=== PATIENT | male | born 1950 | race Caucasian/White ===

== ENCOUNTER 2022-06-27 13:19 | Outpatient (CLI) | payer MEDICARE, OTHER, SELFPAY ==
[2022-06-27 17:55] LABS: Chloride* 104 mmol/L (96-114)
[2022-06-27 17:56] LABS: Potassium* 4.8 mmol/L (3.6-5.1); Sodium* 139 mmol/L (135-149)
[2022-06-27 17:58] LABS: Creatinine* 0.9 mg/dL (0.5-1.5); Estimated Glomerular Filt Rate 90 ml/min
[2022-06-27 17:59] LABS: Blood Urea Nitrogen* 20 mg/dL (7-30); Calcium* 9.3 mg/dL (8.4-10.6); Carbon Dioxide* 26 mmol/L (20-32); Glucose* 82 mg/dL (60-115)
== END 2022-06-27 13:20 | disposition home or self-care (01) ==
LOC: LONREF 13:20
PROVIDERS: PCP Family Medicine; Visit Provider Family Medicine
DX: Z01.818 Encounter for other preprocedural examination (principal)
CPT/HCPCS: 80048

== ENCOUNTER 2022-12-18 08:07 | Outpatient (CLI) | payer MEDICARE, OTHER, SELFPAY ==
[2022-12-18 15:13] LABS: Chloride* 108 mmol/L (96-114); Potassium* 4.6 mmol/L (3.6-5.1); Sodium* 138 mmol/L (135-149)
[2022-12-18 15:16] LABS: Blood Urea Nitrogen* 19 mg/dL (7-30); Carbon Dioxide* 24 mmol/L (20-32); Cholesterol* 135 mg/dL (90-199); Creatinine* 0.9 mg/dL (0.5-1.5); Estimated Glomerular Filt Rate 90 ml/min; Glucose* 102 mg/dL (60-115)
[2022-12-18 15:17] LABS: Calcium* 8.8 mg/dL (8.4-10.6); HDL Cholesterol* 39 mg/dL (>=40); LDL Cholesterol Calculated 72 mg/dL (<100); Triglycerides* 121 mg/dL (40-149)
[2022-12-18 15:52] LABS: PSA Diagnostic* < 0.06 ng/mL (0.10-4.00)
== END 2022-12-18 08:08 | disposition home or self-care (01) ==
PROVIDERS: PCP Family Medicine; Visit Provider Family Medicine
DX: E78.5 Hyperlipidemia, unspecified (principal); I10 Essential (primary) hypertension; C61 Malignant neoplasm of prostate
CPT/HCPCS: 80048; 80061; 84153

== ENCOUNTER 2022-12-26 14:22 | Outpatient (CLI) | payer MEDICARE, OTHER, SELFPAY ==
--- NOTE | 2022-12-26 15:00 | CRLHL7_ITS ---
For Patients: As a result of the Century Cures Act, medical imaging exams and procedure reports are released immediately into your electronic medical record. You may view this report before your referring provider. If you have questions, please contact your health care provider. Indication: Ascending aortic aneurysm Technique: Noncontrast CT chest Please note that all CT scans at this facility use dose modulation, iterative reconstruction, and/or weight-based dosing when appropriate to reduce radiation dose to as low as reasonably achievable. Comparison: 11/03/2019 Findings: Similar appearance of the ascending aorta measuring 4.1 x 4.0 cm. Dense calcifications within the coronary arteries noted. No adenopathy. Stable low-density right adrenal adenoma measuring 1.3 cm. Incidental splenule noted. Benign calcified granuloma within the left lower lobe and calcified left hilar lymph nodes are similar. Stable 3 millimeter nodule within the right upper lobe. No additional nodule. No infiltrate, edema, effusion or pneumothorax. Chronic wedging mid thoracic spine without acute fracture. Impression: Stable 4.0 x 4.1 cm ascending aorta. Please note that all CT scans at this facility use dose modulation, iterative reconstruction, and/or weight-based dosing when appropriate to reduce radiation dose to as low as reasonably achievable. Dictated by Taran San MD @ 12/27/2022 12:59:00 PM (Electronically Signed)
== END 2022-12-26 14:23 | disposition home or self-care (01) ==
LOC: CT 14:24
PROVIDERS: PCP Family Medicine; Visit Provider Family Medicine
DX: I71.21 Aneurysm of the ascending aorta, without rupture (principal)
CPT/HCPCS: 71250

== ENCOUNTER 2023-05-09 15:23 | Outpatient (CLI) | payer OTHER, MEDICARE, SELFPAY | END 2023-05-09 15:24 | disposition home or self-care (01) | LOC: AMB 05-21 13:51 | PROVIDERS: PCP Family Medicine; Visit Provider Family Medicine | DX: T14.90XA Injury, unspecified, initial encounter (principal); V49.40XA Driver injured in collision with unspecified motor vehicles in traffic accident, initial encounter; Y92.410 Unspecified street and highway as the place of occurrence of the external cause | CPT/HCPCS: A0998 ==

== ENCOUNTER 2024-07-22 09:00 | Outpatient (RCR) | payer MEDICARE, OTHER, SELFPAY | END 2024-11-19 23:59 | disposition home or self-care (01) | PROVIDERS: PCP Family Medicine; Visit Provider Family Medicine | DX: M25.511 Pain in right shoulder (principal); G89.29 Other chronic pain; Z74.09 Other reduced mobility; R53.1 Weakness; Z51.89 Encounter for other specified aftercare | CPT/HCPCS: 97110; 97112; 97140; 97161 ==

== ENCOUNTER 2024-11-05 16:11 | Emergency (ER) | payer MEDICARE, OTHER, SELFPAY ==
[2024-11-05] VITALS (24 sets, daily range): BP systolic 105–150; BP diastolic 65–109; PULSE 58–75; RESP 18; O2SAT 94–99; BMI 29.0
--- OUTSIDE RECORDS SUMMARY | 2024-11-05 16:15 | XMS_ITS | Clinical Summary ---
Author Organization [facility] Address [place], [place] [address] Care Team Providers Care Tray Delivery Aide Name Role Phone Andrae Conley MD Primary Care Provider + Allergies No known active allergies Medications multivitamin (MVI) tablet Take 1 tablet by mouth once daily. 1 tablet 0 10/25/2013 Active omega-3 fatty acids-vitamin E (FISH OIL) 1,000 mg cap Take 1 capsule by mouth. 0 10/25/2013 Active lisinopriL (PRINIVIL; ZESTRIL) 20 mg tablet Take 1 Tablet (20 mg) by mouth once daily. 1 Tablet 07/08/2021 Active aspirin (ECOTRIN) 81 mg enteric coated tablet Take 1 Tablet (81 mg) by mouth once daily with a meal. 1 Tablet 07/08/2021 Active atorvastatin (LIPITOR) 20 mg tablet Take 20 mg by mouth at bedtime. 02/01/2023 Active meloxicam (MOBIC) 7.5 mg tabletIndication s:Left knee pain, unspecified chronicity Take 1 Tablet (7.5 mg) by mouth once daily. 30 Tablet 1 10/08/2024 Active Hospital, Clinic, or Other Facility Administered Medication Ordered Dose Route Frequency Start Date End Date Status triamcinolone acetonide (KENALOG) injection 40 mgIndications:Acute pain of left knee 40 mg IArtic ONE TIME 10/21/2024 10/21/2024 Ended Active Problems Problem Noted Date Diagnosed Date Knee pain, left 10/30/2024 Overview (10/30/2024): September 2024: left knee cortisone injection 90 % decreased pain at 10 days. Arthritis of carpometacarpal (CMC) joint of righ t thumb 06/11/2024 Overview (06/11/2024): May 2024: Cortisone injection by Dr. Mckee. Calcium pyrophosphate deposition disease (CPPD) 06/11/2024 Overview (06/11/2024): May 2024: both Shoulder and wrist with CDDP suggested on X-ray. Adenomatous colon polyp 07/13/2021 Overview (07/13/2021): Colonoscopy 06/2021 TA, repeat in 5 years Diverticulosis of colon (without mention of hemo rrhage) 05/06/2015 Family history of colon cancer 01/07/2010 Overview (01/07/2010): Colonoscopy 12/2009 diverticulosis repeat in 5 years Encounters Date Type Department Care Team Description 10/30/2024 Telephone [facility] [address] [place] [address] Giovani Mckee MD Knee Pain/problem 10/21/2024 11:10 AM [employer] Office Visit [address] [address] Giovani Mckee MD Musculoskeletal Problem (Consultation for LEFT Knee pain ) 10/21/2024 Travel 10/08/2024 10:45 AM [employer] Ancillary Procedure [address] [address] 10/08/2024 9:35 AM [employer] Office Visit [address] [address] Andrae Conley MD Musculoskeletal Problem (Left knee pain, no injury,swollen and feels warm x 2 week) 10/08/2024 Travel 10/01/[address] [address] Andrae Conley MD Appointment Request (RT KNEE PAIN) 08/19/2024 9:55 AM CDT Office [facility] [address] [facility] [address] Giovani Mckee MD Musculoskeletal Problem (Follow-up RIGHT Shoulder pain/DOO: Summer 2022/Review MRI) 08/19/2024 Travel 08/14/2024 8:45 AM CDT Ancillary Procedure [facility] [address] [place] [address] 08/14/2024 Travel from Last 3 Months Immunizations Name Administration Dates Next Due AMB Influenza, IIV3 (Age >=3 years)(Flu Clinic Only) 09/11/2008 Influenza A (H1N1), Inactiva oskar (Age 6-35 Mos) 10/27/2009 Influenza Virus, Unspecified 08/16/2022,08/22/20 05 Influenza, High-dose Inactivated 019,09/04/2018,07/27/2017,08/02 Influenza, IIV3 (Age 6-35 mos) 06/30/2015,2009 Influenza, IIV3 (Age >=3 years) 08/05/20 14,08/11/2013,07/30/2012,08/22,12/03/2007,08/17/2006,09/06/2005 Influenza, IIV4 10/27/2009 Influenza, Inactivated AIIV4 (Age 65+ Years) Preserv Free 08/08/2023,08/16/2022,07/12/2021,07/19 Influenza, Inactivated IIV3 (Age 65+ Years) Preserv Free 08/06/2024 Pneumococcal Poly,23-Valent (Pneumovax) 12/01/2015 Pneumococcal conj 13-Valent (Prevnar 13) 01/06/2018,01/06/2015 RSV, Bivalent Vaccine Recons tituted (Abrysvo 120MCG/0.5mL) 04/01/2024 TD, UNSPECIFIED 10/28/2019,08/22/2005 Td, Preservative Free (age >= 7 Years) 0 Tdap 12/03/2007 Zoster (Shingrix-RZV, recombinant) 05/06/2019,,11/27/2018 Zoster (Zostavax-ZVL, live) 10/21/2012 Social History Tobacco Use Types Packs/Day Years Used Date Smoking Tobacco: Never Smokeless Tobacco: Never Tobacco Cessation:Counseling Given: Yes Alcohol Use Standard Drinks/Week Comments Yes 0 (1 standard drink = 0.6 oz pur e alcohol) one beer every 2 weeks [facility] Utilities Answer Date Recorded Do you have trouble paying f or utilities (for example, heat, electricity, water, phone)? Yes 10/08/2024 PHQ-2 Answer Date Recorded PHQ-2 TOTAL SCORE 0 12/26/2023 Social Connections Answer Date Recorded Do you often feel lonely or isolated from those around you? 0 10/08/2024 Financial Resource Strain Answer Date R ecorded Difficulty of Paying Living Expenses 3 10/08/2024 Difficulty of Paying Living Expenses Not on file 10/08/2024 Food Insecurity Answer Date Recorded Do you worry your food will run out before you are able to buy more? 1 10/08/2024 Transportation Needs Answer Date Record ed Does lack of transportation keep you from medica l appointments? 1 10/08/2024 Does lack of transportation keep you from work, meetings or getting things that you need? 1 10/08/2024 Housing Stability Answer Date Recorded What is your housing situation today? 1 10/08/2024 Sex and Gender Information Value Date Recorded Sex Assigned at Not on file Legal Sex Male 6:26 AM [employer] Gender Identity Not on file Sexual Orientation Not on file Occupation Industry Job Start Date Job End Date retired Not on file Not on file Not on file Obstetrics History Last Filed Vital Signs Vital Sign Reading Time Taken Comments Blood Pressure 138/82 10/21/2024 11:13 AM [employer] recheck BP Pulse 89 10/21/2024 11:13 AM [employer] Temperature 37.3 C (99.2 F) 12/26/2023 10:10 AM [employer] Respiratory Rate - - Oxygen Saturation 99% 10/21/2024 11: 10 AM [employer] Inhaled Oxygen Concentration - - Weight 100.5 kg (221 lb 9.6 oz) 024 9:37 AM [employer] Height 172.7 cm (5' 8) 10/08/2024 9:37 AM [employer] Body Mass Index 33.69 10/08/2024 9:37 AM [employer] Plan of Treatment Health Maintenance Due Date Last Done Comments Depression screening for age 12+ 12/25/2024 12/26/19 Medicare Wellness for age 65+ 12/26/2024 12/26/2023 BMI (ht and wt on same day) for age 18+ 10/08/2025 10/08/2024, 12/26/2023 Colonoscopy through age 75 07/08/202607/08, 07/08/2021, 05/06/2015, Additional history exists Lipids for age 45-75 12/25/2028 12/26/2023 Tetanus booster 10/28/2029 10/28/2019, 04/2020, 12/03/2007, Additional history exists Tdap Completed 12/03/2007 Pneumococcal series for age 50+ Completed 01/06/2018, 12/01/2015, 01/06/2015 Zoster (shingles) series for age 50+ Completed 05/06/2019, 03/27/2019, 11/27/2018, Additional history exists Hepatitis C screening for ag e 18-79 Completed 12/26/2023 RSV vaccine for adults or Completed 04/01/2024 Influenza for age 65+ Completed 08/06/2024 , 08/08/2023, 08/16/2022, Additional history exists COVID-19 vaccine series Completed 09/09/20, 01/03/2024, 05/29/2023, Additional history exists Procedures Procedure Name Priority Date/Time Associated Diagnosis Comments XR KNEE 3 VIEWS LEFT Routine 10/08/2024 10:36 AM [employer] Left knee pain, unspecified chronicity MR SHOULDER RIGHT WO Routine 08/14/2024 9:13 AM CDT Chronic right shoulder pain ANTI HCV Routine 12/26/2023 11:05 AM [employer] Need for hepatitis C screening test LIPID PANEL W REFLEX MEASURED LDL Routine 12/26/2023 11:05 AM [employer] Screening cholesterol level COLONOSCOPY 07/08/2021 9:17 AM CDT from Last 3 Months or Most Recently Relevant to Health Maintenance Results * XR KNEE 3 VIEWS LEFT (10/08/2024 10:36 AM [employer]) Anatomical Region Laterality Modality KNEES, KNEE L Computed Radiogr aphy 10/08/2024 4:00 PM [employer] Narrative 10/08/2024 4:00 PM [employer] For Patients: As a result of the Cures Act, medical imaging exams and procedure reports are released immediately into your electronic medical record. You may view this report before your referring provider. If you have questions, please contact your health care provider. Indication: Knee pain Technique: Left knee 3 views Comparison: None Findings: Chondrocalcinosis of the menisci extending into the posterior soft tissues. Suprapatellar joint effusion. Vascular calcifications. Mild patellofemoral spurring and mild medial compartment narrowing. Impression: Mild degenerative joint disease with extensive chondrocalcinosis and small joint effusion. Dictated by Taran San MD @ 10/08/2024 4:00:18 PM (Electronically Signed) Procedure Note Taran San MD - 10/08/2024 For Patients: As a result of the Cures Act, medical imagingexams and procedure reports are released immediately into your electronicmedical record. You may view this report before your referring provider.If you have questions, please contact your health care provider. Indication: Knee pain Technique: Left knee 3 views Comparison: None Findings: Chondrocalcinosis of the menisci extending into the posterior softtissues. Suprapatellar joint effusion. Vascular calcifications. Mildpatellofemoral spurring and mild medial compartment narrowing. Impression: Mild degenerative joint disease with extensive chondrocalcinosis and smalljoint effusion. Dictated by Taran San MD @ 10/08/2024 4:00:18 PM (Electronically Signed) us Andrae Conley MD GENERAL IMAGING Final Re sult * MR SHOULDER RIGHT WO (08/14/2024 9:13 AM CDT) Anatomical Region Laterality Modality SHOULDER R Magnetic Resonan ce 08/15/2024 8:44 AM CDT Impressions 08/15/2024 8:44 AM CDT 1. Focal signal abnormality in the supraspinatus tendon most consistent with a tendon tear with intervening fibrous granulation tissue. Moderate to advanced tendinopathy. 2. Mild infraspinatus and mild to moderate subscapularis tendinopathy. 3. Small glenohumeral joint effusion with mild synovitis. 4. Moke-iw-vgvkvfhs arthropathy of the acromioclavicular joint. 5. Small amount of fluid in the subacromial subdeltoid bursa. Dictated by Raj Koehler MD @ 08/15/2024 8:44:22 AM (Electronically Signed) Narrative 08/15/2024 8:44 AM CDT For Patients: As a result of the Cures Act, medical imaging exams and procedure reports are released immediately into your electronic medical record. You may view this report before your referring provider. If you have questions, please contact your health care provider. EXAM: MRI OF THE RIGHT SHOULDER WITHOUT CONTRAST CLINICAL INDICATION: One year history of shoulder pain. Rotator cuff disorder suspected. COMPARISON PLAIN FILMS: 06/10/2024. COMPARISON CROSS-SECTIONAL IMAGING STUDIES: None available at time of interpretation. TECHNICAL: Axial, sagittal oblique and coronal oblique T1, PD, PD FS and T2-weighted images. Shoulder surface coil. FINDINGS: ROTATOR CUFF TENDONS AND MUSCLES AND DELTOID: Supraspinatus: Focal area of intermediate T2 signal in the articular surface and intrasubstance of the distal supraspinatus tendon measures up to 1.2 cm RL and AP. The signal accounts for greater than half of the overall tendon thickness with a more vertical high-grade involvement at the posterior margin. Although there is no fluid-filled gap, the morphology is consistent with a tear and intervening fibrous granulation tissue. Moderate to advanced diffuse tendinopathy. No muscle atrophy or edema. Infraspinatus: Mild tendinopathy. No tendon tear. No muscle atrophy or edema. Subscapularis: Qbbd-an-tlggbfob tendinopathy. No tendon tear. No muscle atrophy or edema. Teres Minor: No tendinosis, tendon tearing, muscle atrophy or muscle edema. Deltoid: No muscle atrophy or edema. BURSA: Subacromial-subdeltoid: Small amount of fluid in the subacromial subdeltoid bursa. BICEPS TENDON, LONG HEAD: The long head of the biceps tendon is appropriately positioned within the bicipital groove without tendon subluxation or dislocation. The biceps julito mechanism is intact. The biceps anchor appears grossly intact. There is no significant tendinosis or tendon tearing. CORACOACROMIAL ARCH: Acromial Morphology: Type 2 acromial morphology. No abnormal lateral or anterior downward sloping of the acromion. No significant subacromial spur. No os acromiale. Acromiohumeral Interval: Normal. Coracohumeral Interval: Normal. ACROMIOCLAVICULAR JOINT REGION: AC Joint: Loqs-kw-kjewjmae arthropathy of the acromioclavicular joint with small inferior marginal osteophytes. Ligaments: The coracoclavicular ligaments are intact. GLENOHUMERAL JOINT: Joint space: Small joint effusion. Mild synovitis. Humeral Head Articular Cartilage: No focal cartilage defect or underlying subchondral marrow changes. Glenoid Articular Cartilage: No focal cartilage defect or underlying subchondral marrow changes. Labrum: No labral tear or paralabral cyst. Alignment: Maintained. Capsule: No capsular edema or abnormal capsular thickening. OSSEOUS STRUCTURES: No fracture, marrow edema or marrow replacement process. OTHER FINDINGS: There is no abnormality within the suprascapular or spinoglenoid notches nor within the quadrilateral space. No axillary adenopathy or mass. Procedure Note Raj Koehler MD - 08/15/2024 For Patients: As a result of the Century Cures Act, medical imagingexams and procedure reports are released immediately into your electronicmedical record. You may view this report before your referring provider.If you have questions, please contact your health care provider. EXAM: MRI OF THE RIGHT SHOULDER WITHOUT CONTRAST CLINICAL INDICATION: One year history of shoulder pain. Rotator cuff disorder suspected. COMPARISON PLAIN FILMS: 06/10/2024. COMPARISON CROSS-SECTIONAL IMAGING STUDIES: None available at time of interpretation. TECHNICAL: Axial, sagittal oblique and coronal oblique T1, PD, PD FS and T2-weightedimages. Shoulder surface coil. FINDINGS: ROTATOR CUFF TENDONS AND MUSCLES AND DELTOID: Supraspinatus: Focal area of intermediate T2 signal in the articularsurface and intrasubstance of the distal supraspinatus tendon measures upto 1.2 cm RL and AP. The signal accounts for greater than half of theoverall tendon thickness with a more vertical high-grade involvement atthe posterior margin. Although there is no fluid-filled gap, themorphology is consistent with a tear and intervening fibrous granulationtissue. Moderate to advanced diffuse tendinopathy. No muscle atrophy oredema. Infraspinatus: Mild tendinopathy. No tendon tear. No muscle atrophy oredema. Subscapularis: Uwag-ej-uviagfqn tendinopathy. No tendon tear. No muscleatrophy or edema. Teres Minor: No tendinosis, tendon tearing, muscle atrophy or muscleedema. Deltoid: No muscle atrophy or edema. BURSA: Subacromial-subdeltoid: Small amount of fluid in the subacromialsubdeltoid bursa. BICEPS TENDON, LONG HEAD: The long head of the biceps tendon is appropriately positioned within thebicipital groove without tendon subluxation or dislocation. The bicepspulley mechanism is intact. The biceps anchor appears grossly intact.There is no significant tendinosis or tendon tearing. CORACOACROMIAL ARCH: Acromial Morphology: Type 2 acromial morphology. No abnormal lateral oranterior downward sloping of the acromion. No significant subacromialspur. No os acromiale. Acromiohumeral Interval: Normal. Coracohumeral Interval: Normal. ACROMIOCLAVICULAR JOINT REGION: AC Joint: Fkfx-ss-utxthsfx arthropathy of the acromioclavicular joint withsmall inferior marginal osteophytes. Ligaments: The coracoclavicular ligaments are intact. GLENOHUMERAL JOINT: Joint space: Small joint effusion. Mild synovitis. Humeral Head Articular Cartilage: No focal cartilage defect or underlyingsubchondral marrow changes. Glenoid Articular Cartilage: No focal cartilage defect or underlyingsubchondral marrow changes. Labrum: No labral tear or paralabral cyst. Alignment: Maintained. Capsule: No capsular edema or abnormal capsular thickening. OSSEOUS STRUCTURES: No fracture, marrow edema or marrow replacement process. OTHER FINDINGS: There is no abnormality within the suprascapular or spinoglenoid notchesnor within the quadrilateral space. No axillary adenopathy or mass. IMPRESSION: 1. Focal signal abnormality in the supraspinatus tendon most consistentwith a tendon tear with intervening fibrous granulation tissue. Moderateto advanced tendinopathy. 2. Mild infraspinatus and mild to moderate subscapularis tendinopathy. 3. Small glenohumeral joint effusion with mild synovitis. 4. Jlke-jr-kwljjfvm arthropathy of the acromioclavicular joint. 5. Small amount of fluid in the subacromial subdeltoid bursa. Dictated by Raj Koehler MD @ 08/15/2024 8:44:22 AM (Electronically Signed) us Giovani Mckee MD MR Final Res ult * (ABNORMAL) LIPID PANEL W REFLEX MEASURED LDL (12/26/2023 11:05 AM [employer]) Pathologist [facility] CHOLESTEROL,TOTAL 133 100 - 199 mg/dL 12/26/2023 5:52 PM [employer] [facility] Comment: Cholesterol, Total Reference Ranges Desirable <200 mg/dL Borderline 200-239 mg/dL High >=240 mg/dL TRIGLYCERIDES 71 <150 mg/dL 12/26/2023 5:52 PM [employer] [facility] HDL CHOLESTEROL 40(L) >40 mg/dL 5:52 PM [employer] [facility] NON-HDL CHOLESTEROL 93 <145 mg/dl 12/26/2023 5:52 PM [employer] [facility] CHOL/HDL RATIO 3.33 <4.50 12/26/2023 5:52 PM [employer] [facility] LDL CHOLESTEROL 79 <=130 mg/dL 12/26/2023 5:52 PM [employer] [facility] VLDL CHOLESTEROL 14 <=30 mg/dL 12/26/2023 5:52 PM [employer] [facility] PROVIDER ORDERED STATUS RANDOM 12/26/2023 5:52 PM [employer] [facility] Blood BLOOD SPECIMEN / Unknown Venipuncture / Unknown 12/26/2023 11:05 AM [employer] 12/26/2023 11:06 AM [employer] us Andrae Conley MD CHEMISTRY Final Re sult [facility] [address] [place] [address], [place] * ANTI HCV [98473.2] (12/26/2023 11:05 AM [employer]PER[employer]) HEPATITIS C ANTIBODY Non-Reacti ve Non-React marylou 12/26/2023 9:25 PM [employer] [facility] Comment:Please note, per www .CDC.gov: If a patient is known to be at high risk of HCV infection, or is symptomatic, and the physician's suspicion of HCV infection is high, HCV RNA testing is often employed and is of diagnostic value, even after an initial negative anti-HCV test result. Blood BLOOD SPECIMEN / Unknown Venipuncture / Unknown 12/26/2023 11:05 AM [employer] 12/26/2023 11:06 AM [employer] us Andrae Conley MD SEND OUTS Final Re sult [facility] [address] [place] [address], [place] * COLONOSCOPY (07/08/2021 9:17 AM CDT) 07/08/2021 9:17 AM CDT Narrative Transcriptions Riley García MD - 07/08/2021 11:35 AM CDT Patient Name: David Escobar Procedure Date: 07/08/2021 Gender: Male Date of : 1950 Admit Type: Outpatient Procedure: Colonoscopy Proceduralist: Riley García MD , Rama Sebastian (Nurse) Indications/Pre-Op Diagnosis: Surveillance: Personal history ofadenomatous polyps on last colonoscopy 5 years ago,Family history of colon cancer in a first-degree relative before age 60 years Medications: Fentanyl 100 micrograms IV, Midazolam 3 mgIV, The level of sedation administered wasmoderate Procedure Description: The patient had risks, benefits and alternatives explained to andgave informed consent. The patient had a stable cardiopulmonary status and judged an adequate candidate for conscious sedation. The [id number] was passed through the anus and advanced tothe cecum, identified by appendiceal orifice and ileocecal valve. The colonoscopy was performed without difficulty. The patient toleratedthe procedure well. The quality of the bowel preparation was good. The ileocecal valve, appendiceal orifice, and rectum were photographed. Complications: No immediate complications. Estimated Blood Loss & Specimen: Estimated blood loss: none. Specimen collected - Yes and sent to Laboratory Findings: The perianal and digital rectal examinations were normal. A 3 mm polyp was found in the rectum. The polyp was sessile. Thepolyp was removed with a cold snare. Resection and retrieval werecomplete. A few small and large-mouthed diverticula were found in the sigmoid colon. The exam was otherwise without abnormality on direct and retroflexion views. Impressions/Post-Op Diagnosis: - One 3 mm polyp in the rectum, removed with a cold snare. Resectedand retrieved. - Diverticulosis in the sigmoid colon. - The examination was otherwise normal on direct and retroflexionviews. Recommendation: - Patient has a contact number available for emergencies. The signsand symptoms of potential delayed complications were discussed with the patient. Return to normal activities tomorrow. Written discharge instructions were provided to the patient. - Resume previous diet. - Continue present medications. - Await pathology results. - Repeat colonoscopy in 5 years for surveillance. Moderate Sedation: Moderate (conscious) sedation was administered by the endoscopy nurse and supervised by the endoscopist. The following parameters were monitored: oxygen saturation, heart rate, respiratory rate, blood pressure, adequacy of pulmonary ventilation and reponse to care. Please refer to the patient's medical record flowsheets and nursing notes for moderate sedation details. Total physician intraservice time was 16 minutes. Riley García MD 07/08/2021 11:33:34 AM This report has been signed electronically. Note Initiated On: 07/08/2021 9:17 AM Procedure Code(s): --- Professional --- 00512, Colonoscopy, flexible; with removalof tumor(s), polyp(s), or other lesion(s) bysnare technique Diagnosis Code(s): --- Professional --- Z86.010, Personal history of colonicpolyps K62.1, Rectal polyp Z80.0, Family history of malignant neoplasmof digestive organs K57.30, Diverticulosis of large intestine without perforation or abscess withoutbleeding CPT copyright 2020 [employer]. All rights reserved. The codes documented in this report are preliminary and upon wind farm electrical systems designer reviewmay be revised to meet current compliance requirements. Scope In: 10:23:38 AM Scope Withdrawal Time 0 hours 7 minutes 32 seconds Scope Out: 10:36:45 AM Riley García MD PROCEDURE ORD Edited Re sult - Final from Last 3 Months or Most Recently Relevant to Health Maintenance Insurance MEDICARE PB ONLY MEDICARE PART A HB ONLY MEDICARE PART B HB ONLY FOR LIFE [address] [facility] [place] [id number] Care Teams Tray Delivery Aide Relationship Specialty Start Date End Date Votel, Andrae Worley MD [address] [facility] [address] PCP - General Family Practice 06/10/24
--- NOTE | 2024-11-05 16:28 | CRLHL7_ITS ---
For Patients: As a result of the Century Cures Act, medical imaging exams and procedure reports are released immediately into your electronic medical record. You may view this report before your referring provider. If you have questions, please contact your health care provider. INDICATION: Fall. COMPARISON: None available. TECHNIQUE: CT of the cervical spine without intravenous contrast. Please note that all CT scans at this facility use dose modulation, iterative reconstruction, and/or weight-based dosing when appropriate to reduce radiation dose to as low as reasonably achievable. FINDINGS: Alignment: No significant spondylolisthesis, widening of the intervertebral disc spaces, interfacetal joints or interspinous distances. Vertebrae: Vertebral bodies, pedicles, laminae, articular, transverse and spinous processes are intact. Right C5-C6 facet joint osteoarthrosis. 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 Soft Tissues: No perivertebral edema or hemorrhage. Extraspinal Anatomy: No significant findings. IMPRESSION: No acute traumatic injury is identified. Incidental findings as above. Please note that all CT scans at this facility use dose modulation, iterative reconstruction, and/or weight-based dosing when appropriate to reduce radiation dose to as low as reasonably achievable. Dictated by Terry Hurst MD @ 11/05/2024 5:31:12 PM (Electronically Signed)
--- NOTE | 2024-11-05 16:28 | CRLHL7_ITS ---
For Patients: As a result of the Century Cures Act, medical imaging exams and procedure reports are released immediately into your electronic medical record. You may view this report before your referring provider. If you have questions, please contact your health care provider. INDICATION: Fall. COMPARISON: None available. TECHNIQUE: CT of the head without intravenous contrast. Please note that all CT scans at this facility use dose modulation, iterative reconstruction, and/or weight-based dosing when appropriate to reduce radiation dose to as low as reasonably achievable. FINDINGS: No acute infarct. No intracranial mass or mass effect. No intracranial hemorrhage. No hydrocephalus. Intact skull base and cranial vault. Visualized orbits are without significant incidental findings. Visualized paranasal sinuses and mastoid air cells are clear. Small left posterior parietal scalp subgaleal hematoma. IMPRESSION: Small left posterior parietal scalp subgaleal hematoma. The underlying cranial vault is intact. No intracranial hemorrhage or other acute findings. Please note that all CT scans at this facility use dose modulation, iterative reconstruction, and/or weight-based dosing when appropriate to reduce radiation dose to as low as reasonably achievable. Dictated by Terry Hurst MD @ 11/05/2024 5:23:36 PM (Electronically Signed)
--- NOTE | 2024-11-05 16:28 | CRLHL7_ITS ---
For Patients: As a result of the Century Cures Act, medical imaging exams and procedure reports are released immediately into your electronic medical record. You may view this report before your referring provider. If you have questions, please contact your health care provider. INDICATION: FALL TRAUMA LOC. (Sic) COMPARISON: Chest CT dated 12/26/2022. TECHNIQUE: CT of the chest, abdomen and pelvis with 91 cc of Isovue 370 intravenous contrast. Please note that all CT scans at this facility use dose modulation, iterative reconstruction, and/or weight-based dosing when appropriate to reduce radiation dose to as low as reasonably achievable. FINDINGS: THORAX Visualized Lower Neck: No lower cervical adenopathy. Lungs: No significant pulmonary findings. Bilateral lower lobe dependent hypoventilatory changes. Pleura: No pleural effusion. No pneumothorax. Mediastinum: Thoracic aorta and pulmonary trunk are normal in caliber. Are Nelson Adderall caliber of the mid ascending thoracic aorta at the level of the main pulmonary artery is 3.9 cm (series 4; image 42). Severe multivessel atherosclerotic coronary artery calcifications. Trachea and esophagus are normal in appearance. No mediastinal lymphadenopathy. ABDOMEN Liver: Normal contour and attenuation. No significant focal lesion. No intrahepatic biliary ductal dilatation. Patent portal veins. Patent hepatic veins. Gallbladder: Normal size. No pericholecystic inflammatory changes. Normal common duct caliber. Pancreas: Normal contour and attenuation. No peripancreatic inflammatory changes. No significant focal lesion. Normal main duct caliber. Spleen: Not enlarged. No significant focal lesion. Accessory splenule. Adrenal Glands: 2.5 cm right adrenal adenoma as on the prior noncontrast CT of 12/26/2022. unremarkable left adrenal gland. Kidneys: Normal bilateral renal attenuation. No significant focal lesion. Benign 1.6 cm exophytic right upper pole renal cortical cyst. No nephrolith. No dilatation of the intrarenal collecting systems. No ureteral stone. Nondilated ureters. Patent renal arteries and veins. Gastrointestinal tract: Normal caliber, attenuation and wall thickness of the gastrointestinal tract. Sigmoid diverticulosis without associated inflammatory changes. Normal small bowel mesentery. Normal appendix. Vascular: Chronic aortoiliac atherosclerotic mural calcification. Abdominal aorta and its major proximal branches including the celiac, superior mesenteric, inferior mesenteric, renal, and bilateral common iliac arteries are patent. Patent superior mesenteric vein. Peritoneal Cavity/Retroperitoneum: No ascites. No adenopathy. PELVIS Streak artifact associated with bilateral hip arthroplasties limits interpretation. No bladder lesion is identified. No significant incidental findings related to the prostate or seminal vesicles. No ascites. No adenopathy. 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 Bilateral hip arthroplasties. Left inguinal canal lipoma/extrusion of extraperitoneal fat. Anterior midline infraumbilical abdominal wall laparotomy scar. IMPRESSION: No acute traumatic injuries identified. Incidental findings as above. Please note that all CT scans at this facility use dose modulation, iterative reconstruction, and/or weight-based dosing when appropriate to reduce radiation dose to as low as reasonably achievable. Dictated by Terry Hurst MD @ 11/05/2024 5:47:51 PM (Electronically Signed)
--- NOTE | 2024-11-05 16:39 | CRLHL7_ITS ---
For Patients: As a result of the Cures Act, medical imaging exams and procedure reports are released immediately into your electronic medical record. You may view this report before your referring provider. If you have questions, please contact your health care provider. INDICATION: Fall. COMPARISON: None available. TECHNIQUE: 1 view. FINDINGS: Medical Devices: None. Lung Volumes: Adequate inspiration. No significant atelectasis. Lungs: Clear lungs. Pleura and Pleural spaces: No significant pleural effusion. No pneumothorax. Mediastinum: Normal cardiomediastinal silhouette. Bony Thorax and Soft Tissues: No significant incidental findings. IMPRESSION: No acute findings. Dictated by Terry Hurst MD @ 11/05/2024 5:32:08 PM (Electronically Signed)
[2024-11-05 16:42] LABS: Basophils Absolute Auto 0.02 K/uL (0.00-0.30); Basophils Percent Auto 0.2 % (0.0-3.0); Hemoglobin* 12.6 gm/dL (13.5-17.5); Immature Granulocytes Abs Auto 0.03 K/uL (0.00-0.30); Immature Granulocytes Pct Auto 0.3 %; Lymphocytes Absolute Auto 2.46 K/uL (0.90-2.90); Lymphocytes Percent Auto 25.4 % (20-44); Mean Corpuscular HGB Conc 32 gm/dL (32-36); Mean Corpuscular Hemoglobin 27 pg (26-34); Mean Corpuscular Volume 86 fL (80-100); Monocytes Percent Auto 9.5 % (0.0-11.0); Neutrophils Absolute Auto 6.17 K/uL (1.7-7.0); Neutrophils Percent Auto 63.6 % (42.0-72.0); Platelet Count* 179 K/uL (140-440); RDW Coefficient of Variation % 14.1 % (11.5-15.5); Red Blood Count 4.63 m/uL (4.30-5.90)
[2024-11-05 16:52] LABS: Slide Review Reflex No
[2024-11-05 17:02] LABS: Albumin* 4.3 g/dL (3.3-5.0)
[2024-11-05 17:03] LABS: Chloride* 103 mmol/L (96-114); Potassium* 4.4 mmol/L (3.6-5.1); Sodium* 136 mmol/L (135-149)
[2024-11-05 17:05] LABS: Anion Gap 6 mEq/L (7-15); Carbon Dioxide* 27 mmol/L (20-32); Est. Creatinine Clearance* 59.67; Estimated Glomerular Filt Rate 78 ml/min
[2024-11-05 17:06] LABS: Alanine Aminotransferase* 26 U/L (4-50); Alkaline Phosphatase* 97 U/L (40-150); Aspartate Amino Transferase* 29 U/L (12-35); Bilirubin Direct* 0.3 mg/dL (0.0-0.5); Bilirubin Total* 1.1 mg/dL (0.1-1.5); Blood Urea Nitrogen* 36 mg/dL (7-30); Calcium* 9.3 mg/dL (8.4-10.6); Glucose* 99 mg/dL (60-115); INR 0.98 (0.91-1.10); Prothrombin Time 13.6 Seconds; Total Protein* 6.9 g/dL (6.0-8.3)
[2024-11-05 17:07] LABS: Partial Thromboplastin Time* 28 Seconds (23-33)
--- OUTSIDE RECORDS SUMMARY | 2024-11-05 17:15 | XMS_ITS | Clinical Summary ---
Author Organization [facility] Address [place], [place] [address] Care Team Providers Care Cable Installation Manager Name Role Phone Andrae Conley MD Primary [...] Type Department Care Team Description 10/30/2024 Telephone [facility] [address] [place] [address] Giovani Mckee MD Knee Pain/problem 10/21/2024 11:10 AM [facility] Office Visit [address] [address] Giovani Mckee MD Musculoskeletal Problem (Consultation for LEFT Knee pain ) 10/21/2024 Travel 10/08/2024 10:45 AM [facility] Ancillary Procedure [address] [address] 10/08/2024 9:35 AM [facility] Office Visit [address] [address] Andrae Conley MD Musculoskeletal Problem (Left knee pain, no injury,swollen and feels warm x 2 week) 10/08/2024 Travel 10/01/[address] [address] Andrae Conley MD Appointment Request (RT KNEE PAIN) 08/19/2024 9:55 AM CDT Office Visit [address] [facility] [address] Giovani Mckee MD Musculoskeletal Problem (Follow-up RIGHT Shoulder pain/DOO: Summer 2022/Review MRI) 08/19/2024 Travel 08/14/2024 8:45 AM CDT Ancillary Procedure [facility] [address] [place] [address] 08/14/2024 Travel from Last 3 Months Immunizations [...] e alcohol) one beer every [address] [facility] Utilities Answer Date Recorded Do you have [...] on file Legal Sex Male 6:26 AM [facility] Gender Identity Not on file Sexual Orientation Not on file Occupation Industry Job Start Date Job End Date retired Not on file Not on file Not on file Obstetrics History Last Filed Vital Signs Vital Sign Reading Time Taken Comments Blood Pressure 138/82 10/21/2024 11:13 AM [facility] recheck BP Pulse 89 10/21/2024 11:13 AM [facility] Temperature 37.3 C (99.2 F) 12/26/2023 10:10 AM [facility] Respiratory Rate - - Oxygen Saturation 99% 10/21/2024 11: 10 AM [facility] Inhaled Oxygen Concentration - - Weight 100.5 kg (221 lb 9.6 oz) 024 9:37 AM [facility] Height 172.7 cm (5' 8) 10/08/2024 9:37 AM [facility] Body Mass Index 33.69 10/08/2024 9:37 AM [facility] Plan of Treatment Health Maintenance Due Date [...] 3 VIEWS LEFT Routine 10/08/2024 10:36 AM [facility] Left knee pain, unspecified chronicity MR SHOULDER RIGHT WO Routine 08/14/2024 9:13 AM CDT Chronic right shoulder pain ANTI HCV Routine 12/26/2023 11:05 AM [facility] Need for hepatitis C screening test LIPID PANEL W REFLEX MEASURED LDL Routine 12/26/2023 11:05 AM [facility] Screening cholesterol level COLONOSCOPY 07/08/2021 9:17 AM CDT from Last 3 Months or Most Recently Relevant to Health Maintenance Results * XR KNEE 3 VIEWS LEFT (10/08/2024 10:36 AM [facility]) Anatomical Region Laterality Modality KNEES, KNEE L Computed Radiogr aphy 10/08/2024 4:00 PM [facility] Narrative 10/08/2024 4:00 PM [facility] For Patients: As a result of the [...] glenohumeral joint effusion with mild synovitis. 4. Kskb-ss-kheqlbnf arthropathy of the acromioclavicular joint. 5. Small [...] tear. No muscle atrophy or edema. Subscapularis: Jxdj-pp-ayzbrfsn tendinopathy. No tendon tear. No muscle atrophy [...] Interval: Normal. ACROMIOCLAVICULAR JOINT REGION: AC Joint: Uccl-wq-nllkjqub arthropathy of the acromioclavicular joint with small [...] tendon tear. No muscle atrophy oredema. Subscapularis: Enyn-rl-ydwezbol tendinopathy. No tendon tear. No muscleatrophy or [...] Interval: Normal. ACROMIOCLAVICULAR JOINT REGION: AC Joint: Revh-nf-qfvrdoih arthropathy of the acromioclavicular joint withsmall inferior [...] glenohumeral joint effusion with mild synovitis. 4. Nwyl-ce-syuaimao arthropathy of the acromioclavicular joint. 5. Small amount of fluid in the subacromial subdeltoid bursa. Dictated by Raj Koehler MD @ 08/15/2024 8:44:22 AM (Electronically Signed) us Giovani Mckee MD MR Final Res ult * (ABNORMAL) LIPID PANEL W REFLEX MEASURED LDL (12/26/2023 11:05 AM [facility]) Pathologist [facility] CHOLESTEROL,TOTAL 133 100 - 199 mg/dL 12/26/2023 5:52 PM [facility] Comment: Cholesterol, Total Reference Ranges Desirable <200 mg/dL Borderline 200-239 mg/dL High >=240 mg/dL TRIGLYCERIDES 71 <150 mg/dL 12/26/2023 5:52 PM [facility] HDL CHOLESTEROL 40(L) >40 mg/dL 5:52 PM [facility] NON-HDL CHOLESTEROL 93 <145 mg/dl 12/26/2023 5:52 PM [facility] CHOL/HDL RATIO 3.33 <4.50 12/26/2023 5:52 PM [facility] LDL CHOLESTEROL 79 <=130 mg/dL 12/26/2023 5:52 PM [facility] VLDL CHOLESTEROL 14 <=30 mg/dL 12/26/2023 5:52 PM [facility] PROVIDER ORDERED STATUS RANDOM 12/26/2023 5:52 PM [facility] Blood BLOOD SPECIMEN / Unknown Venipuncture / Unknown 12/26/2023 11:05 AM [facility] 12/26/2023 11:06 AM [facility] us Andrae Conley MD CHEMISTRY Final Re sult [facility] [address] [place] [address], [place] * ANTI HCV [[id number]] (12/26/2023 11:05 AM [facility]) HEPATITIS C ANTIBODY Non-Reacti ve Non-React marylou 12/26/2023 9:25 PM [facility] Comment:Please note, per www .CDC.gov: If a patient is known to be at high risk of HCV infection, or is symptomatic, and the physician's suspicion of HCV infection is high, HCV RNA testing is often employed and is of diagnostic value, even after an initial negative anti-HCV test result. Blood BLOOD SPECIMEN / Unknown Venipuncture / Unknown 12/26/2023 11:05 AM [facility] 12/26/2023 11:06 AM [facility] us Andrae Conley MD SEND OUTS Final Re sult [facility] [address] [place] [address], [place] * COLONOSCOPY (07/08/2021 9:17 AM CDT) [...] adequate candidate for conscious sedation. The [id number] was passed through the anus and advanced [...] 9:17 AM Procedure Code(s): --- Professional --- 31718, Colonoscopy, flexible; with removalof tumor(s), polyp(s), or other lesion(s) bysnare technique Diagnosis Code(s): --- Professional --- Z86.010, Personal history of colonicpolyps K62.1, Rectal polyp Z80.0, Family history of malignant neoplasmof digestive organs K57.30, Diverticulosis of large intestine without perforation or abscess withoutbleeding CPT copyright 2020 [employer]. All rights reserved. The codes documented in this report are preliminary and upon field services director reviewmay be revised to meet current compliance [...] B HB ONLY FOR LIFE [address] [facility] [address] Care Teams Cable Installation Manager Relationship Specialty Start Date End Date Votel, Andrae Worley MD [address] [facility] [address] PCP - General Family Practice 06/10/24
--- NOTE | 2024-11-05 17:19 | ED_ITS ---
HPI - General Adult General Date Seen: 11/05/24 Chief complaint: Fall/Minor Trauma Stated complaint: Fell off ladder 10'-head lac, no memory, crawled Time Seen by Provider: 11/05/24 16:28 History of Present Illness HPI narrative: Patient is a 73-year-old male brought in by his after a fall from a ladder. He does not really remember anything surrounding the time of his injury and history is obtained from his . She says that she did not realize he had gone outside and gotten up on a ladder. She saw him crawling out from the shed, bleeding from the head. She when out, got him into the house and then checked the scene where he came from. She says that the ladder was broken probably 8-10 feet up and there was blood on the ladder and blood on the ground. It was a concrete floor. Patient is perseverating a little bit on the fact that he does not remember the accident nor does he remember why he was on the ladder. He does deny really any complaints aside from pain at the site of a wound on his scalp. Bleeding is controlled. Otherwise, he denies headache, neck pain, chest pain, difficulty breathing, abdominal or back pain. He has been ambulatory and walked into the emergency department. A TTA was called on his arrival. He is not anticoagulated. Related Data Home Medications ?Medication ?Instructions ?Recorded ?Confirmed acetaminophen 325 mg tablet 650 mg PO Q4H PRN 06/27/22 08/27/24 (Tylenol) aspirin 81 mg tablet,delayed 81 mg PO QDAY 06/27/22 08/27/24 release Previous Rx's ?Medication ?Instructions ?Recorded atorvastatin 20 mg tablet 20 mg PO QPM #90 tabs 12/18/22 lisinopril 20 mg tablet 20 mg PO QDAY #90 tabs 12/18/22 Allergies Allergy/AdvReac Type Severity Reaction Status Date / Time No Known Drug Allergies Allergy Verified 08/27/24 09:02 Review of Systems Status of ROS: Reports: 10 or more systems reviewed and unremarkable except as noted in History and below [facility] Surgical History S/P inguinal hernia repair ?Z98.890 - Other specified postprocedural states (ICD-10) ?Z87.19 - Personal history of other diseases of the digestive system (ICD-10) S/P cataract extraction ?Z98.49 - Cataract extraction status, unspecified eye (ICD-10) History of umbilical hernia repair ?Z98.890 - Other specified postprocedural states (ICD-10) ?Z87.19 - Personal history of other diseases of the digestive system (ICD-10) Status post routine circumcision ?Z98.890 - Other specified postprocedural states (ICD-10) Status post bilateral hip replacements ?Z96.643 - Presence of artificial hip joint, bilateral (ICD-10) S/P prostatectomy ?Z90.79 - Acquired absence of other genital organ(s) (ICD-10) Social History Smoking Status: Never smoker Do you use any of these nicotine containing products: None Exam Narrative: Exam Narrative: Primary survey: Airway: Patent. Breathing: Nonlabored. Lungs clear. Circulation: Pulses intact. No external bleeding. Disability: GCS 15. Secondary survey: Vital signs reviewed In general, an alert, nontoxic elderly male. Head: Normocephalic. An approximately 5 cm laceration on the occipital parietal scalp on the left. Bleeding controlled, surrounding hematoma noted. Eyes: Pupils are equal reactive. Extraocular movements full. ENT: No facial trauma. Dentition intact. Neck: No midline cervical tenderness. No anterior neck trauma. Chest: No visible signs of chest trauma. No tenderness to palpation. Heart regular rate and rhythm. Lungs clear bilaterally. Abdomen: No visible signs of trauma. Soft, nondistended, nontender to palpation. Back: No visible signs of trauma. Nontender to palpation. Pelvis: Stable, nontender. Extremities: Atraumatic and nontender to palpation. Neurologic: Alert, conversant, moves all extremities to command. He is oriented to person and place, was able to tell me his date but not today's date. Skin: Warm and dry. No other visible skin trauma aside from the scalp. Const: Vital Signs, click to edit/add: Vital Signs - 24 hr 11/05/24 16:20 11/05/24 16:21 11/05/24 16:26 Pulse Rate 62 65 64 Pulse Rate [Pulse Oximeter] Respiratory Rate Blood Pressure 140/65 H 105/87 Blood Pressure [Ri ght Upper Arm] Pulse Oximetry 94 97 95 Oxygen Delivery Me thod 11/05/24 16:30 11/05/24 16:30 11/05/24 16:56 Pulse Rate 68 68 Pulse Rate [Pulse Oximeter] 65 Respiratory Rate 18 Blood Pressure Blood Pressure [Ri ght Upper Arm] 140/65 H Pulse Oximetry 99 95 96 Oxygen Delivery Me thod Room Air 11/05/24 16:58 11/05/24 17:00 11/05/24 17:15 Pulse Rate 64 65 64 Pulse Rate [Pulse Oximeter] Respiratory Rate Blood Pressure 148/78 H Blood Pressure [Ri ght Upper Arm] Pulse Oximetry 95 96 97 Oxygen Delivery Me thod 11/05/24 17:28 11/05/24 17:30 11/05/24 17:31 Pulse Rate 63 62 72 Pulse Rate [Pulse Oximeter] Respiratory Rate Blood Pressure 145/86 H 149/109 H Blood Pressure [Ri ght Upper Arm] Pulse Oximetry 98 97 95 Oxygen Delivery Me thod 11/05/24 17:41 11/05/24 17:45 11/05/24 17:51 Pulse Rate 75 60 Pulse Rate [Pulse Oximeter] Respiratory Rate Blood Pressure 141/78 H 142/77 H Blood Pressure [Ri ght Upper Arm] Pulse Oximetry 96 94 97 Oxygen Delivery Me thod 11/05/24 18:00 11/05/24 18:01 11/05/24 18:11 Pulse Rate 61 64 58 L Pulse Rate [Pulse Oximeter] Respiratory Rate Blood Pressure 140/87 H 148/83 H Blood Pressure [Ri ght Upper Arm] Pulse Oximetry 96 97 98 Oxygen Delivery Me thod 11/05/24 18:15 11/05/24 18:21 11/05/24 18:30 Pulse Rate 61 62 63 Pulse Rate [Pulse Oximeter] Respiratory Rate Blood Pressure 150/79 H Blood Pressure [Ri ght Upper Arm] Pulse Oximetry 96 96 97 Oxygen Delivery Me thod 11/05/24 18:31 11/05/24 18:41 11/05/24 18:45 Pulse Rate 58 L 68 63 Pulse Rate [Pulse Oximeter] Respiratory Rate Blood Pressure 144/77 H 146/78 H Blood Pressure [Ri ght Upper Arm] Pulse Oximetry 97 97 97 Oxygen Delivery Me thod 11/05/24 18:51 Pulse Rate 66 Pulse Rate [Pulse Oximeter] Respiratory Rate Blood Pressure 142/79 H Blood Pressure [Ri ght Upper Arm] Pulse Oximetry 96 Oxygen Delivery Me thod Course Course ED Course: After initial evaluation, I did a fast exam. I did not see any evidence of fluid in Morison's pouch or splenorenal views or pelvis. No pericardial effusion, bilateral sliding lung signs. Based on mechanism and age I did elect to do CT scans of the head, cervical spine, chest abdomen and pelvis. He had a portable chest x-ray which by my review did not show any pneumothorax or obvious fractures. Final radiology read is pending. Labs were drawn, an EKG was done which shows I believe a sinus rhythm with a ventricular rate of 65. No acute ST segment changes, unremarkable T-waves. Computer reads this as undetermined rhythm. Labs are notable for white blood cell count of 9.7, hemoglobin is 12.6, coags normal. Metabolic panel is unremarkable aside from mildly elevated BUN of 36. LFTs normal. I reviewed patient's head CT, cervical spine CT, chest abdomen pelvis. I did not see any acute traumatic injuries aside from hematoma on the scalp. No fractures, no pneumothorax, hemothorax, solid organ injury. Final radiology reads were reviewed, link below. No acute findings, incidental findings in the abdomen and pelvis, scalp hematoma. Procedure note: The scalp wound was anesthetized using lidocaine with epinephrine, cleaned by the vehicle modification technician and explored without evidence of foreign body. I closed this with abram. Bleeding is controlled, he tolerated this well. I reviewed all of the CT scans with the patient and his . He has improved since being here to some degree, continues to BM Starr tick to the actual fall but now remembers that he had gone out to the garage to put some [place] decorations away and that is why he was on the ladder. He is otherwise oriented, neurologic exam is unremarkable, and I think discharge home is reasonable. We reviewed reasons to return including any new or concerning symptoms, particularly severe headache, vomiting, confusion. Reviewed with them that despite normal imaging of the brain today that it is possible to have delayed injuries and he should return if they are concerned. Otherwise, primary care follow-up if further problems with concussive symptoms not improving over the next few weeks. Staple removal in about 10 days in clinic. Return for any signs of infection. Vital Signs Vital signs: Initial Vital Signs Pulse Rate 62 11/05/24 16:20 Pulse Oximetry 94 11/05/24 16:20 Vital Signs Pulse Rate 62 11/05/24 16:20 Pulse Oximetry 94 11/05/24 16:20 Pulse Rate 66 11/05/24 18:51 Respiratory Rate 18 11/05/24 16:30 Blood Pressure 142/79 H 11/05/24 18:51 Pulse Oximetry 96 11/05/24 18:51 Oxygen Delivery Method Room Air 11/05/24 16:30 Medical Decision Making Lab Data Labs: Lab Results 11/05/24 Range/Units 16:25 WBC 9.70 (4.50-11.00) K/uL RBC 4.63 (4.30-5.90) m/uL Hgb 12.6 L (13.5-17.5) gm/dL Hct 40.0 (37.0-53.0) % MCV 86 (80-100) fL MCH 27 (26-34) pg MCHC 32 (32-36) gm/dL RDW Coeff of Peña 14.1 (11.5-15.5) % Plt Count 179 (140-440) K/uL Neut % (Auto) 63.6 (42.0-72.0) % Lymph % (Auto) 25.4 (20-44) % [place] % (Auto) 9.5 (0.0-11.0) % Eos % (Auto) 1.0 (0.0-7.0) % Baso % (Auto) 0.2 (0.0-3.0) % Neut # (Auto) 6.17 (1.7-7.0) K/uL Lymph # (Auto) 2.46 (0.90-2.90) K/uL [place] # (Auto) 0.90 (0.00-0.90) K/UL Eos # (Auto) 0.10 (0.00-0.50) K/uL Baso # (Auto) 0.02 (0.00-0.30) K/uL Abs Immat Gran (auto) 0.03 (0.00-0.30) K/uL Imm/Tot Granulo (auto) 0.3 % INR 0.98 (0.91-1.10) APTT 28 (23-33) Seconds Sodium 136 (135-149) mmol/L Potassium 4.4 (3.6-5.1) mmol/L Chloride 103 (96-114) mmol/L Carbon Dioxide 27 (20-32) mmol/L Anion Gap 6 L (7-15) mEq/L BUN 36 H (7-30) mg/dL Creatinine 1.0 (0.5-1.5) mg/dL Estimated Creat Clear 59.67 Estimated GFR 78 ml/min Glucose 99 (60-115) mg/dL Calcium 9.3 (8.4-10.6) mg/dL Total Bilirubin 1.1 (0.1-1.5) mg/dL Direct Bilirubin 0.3 (0.0-0.5) mg/dL AST 29 (12-35) U/L ALT 26 (4-50) U/L Alkaline Phosphatase 97 (40-150) U/L Total Protein 6.9 (6.0-8.3) g/dL Albumin 4.3 (3.3-5.0) g/dL Imaging Data CT scan - head: Attestation: I have reviewed the pertinent imaging results. Radiologist's impression: Patient: David Reyna MR#: [id number] : 1950 Acct:[id number] Loc: ED Service Date: 11/05/[address]: Ordering Physician: Puja Lozano M.D. Date of Service: 11/05/24 Procedure(s): CT head/brain wo con Accession Number(s): [id number] cc: Puja Lozano M.D.; Jason Hamm M.D.~ For Patients: As a result of the Century Cures Act, medical imaging exams and procedure reports are released immediately into your electronic medical record. You may view this report before your referring provider. If you have questions, please contact your health care provider. INDICATION: Fall. COMPARISON: None available. TECHNIQUE: CT of the head without intravenous contrast. Please note that all CT scans at this facility use dose modulation, iterative reconstruction, and/or weight-based dosing when appropriate to reduce radiation dose to as low as reasonably achievable. FINDINGS: No acute infarct. No intracranial mass or mass effect. No intracranial hemorrhage. No hydrocephalus. Intact skull base and cranial vault. Visualized orbits are without significant incidental findings. Visualized paranasal sinuses and mastoid air cells are clear. Small left posterior parietal scalp subgaleal hematoma. IMPRESSION: Small left posterior parietal scalp subgaleal hematoma. The underlying cranial vault is intact. No intracranial hemorrhage or other acute findings. Please note that all CT scans at this facility use dose modulation, iterative reconstruction, and/or weight-based dosing when appropriate to reduce radiation dose to as low as reasonably achievable. Dictated by Terry Hurst MD @ 11/05/2024 5:23:36 PM C-spine CT: Attestation: I have reviewed the pertinent imaging results. Radiologist's impression: Patient: David Reyna MR#: [id number] : 1950 Acct:[id number] Loc: ED Service Date: 11/05/[address]: Ordering Physician: Puja Lozano M.D. Date of Service: 11/05/24 Procedure(s): CT cervical spine wo con Accession Number(s): [id number] cc: Puja Lozano M.D.; Jason Hamm M.D.~ For Patients: As a result of the Cures Act, medical imaging exams and procedure reports are released immediately into your electronic medical record. You may view this report before your referring provider. If you have questions, please contact your health care provider. INDICATION: Fall. COMPARISON: None available. TECHNIQUE: CT of the cervical spine without intravenous contrast. Please note that all CT scans at this facility use dose modulation, iterative reconstruction, and/or weight-based dosing when appropriate to reduce radiation dose to as low as reasonably achievable. FINDINGS: Alignment: No significant spondylolisthesis, widening of the intervertebral disc spaces, interfacetal joints or interspinous distances. Vertebrae: Vertebral bodies, pedicles, laminae, articular, transverse and spinous processes are intact. Right C5-C6 facet joint osteoarthrosis. 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 Soft Tissues: No perivertebral edema or hemorrhage. Extraspinal Anatomy: No significant findings. IMPRESSION: No acute traumatic injury is identified. Incidental findings as above. Please note that all CT scans at this facility use dose modulation, iterative reconstruction, and/or weight-based dosing when appropriate to reduce radiation dose to as low as reasonably achievable. Dictated by Terry Hurst MD @ 11/05/2024 5:31:12 PM Chest x-ray: Attestation: I have reviewed the pertinent imaging results. Radiologist's impression: Patient: David Reyna MR#: [id number] : 1950 Acct:[id number] Loc: ED Service Date: 11/05/[address]: Ordering Physician: Puja Lozano M.D. Date of Service: 11/05/24 Procedure(s): XR chest 1V portable Accession Number(s): [id number] cc: Puja Lozano M.D.; Jason Hamm M.D.~ For Patients: As a result of the Cures Act, medical imaging exams and procedure reports are released immediately into your electronic medical record. You may view this report before your referring provider. If you have questions, please contact your health care provider. INDICATION: Fall. COMPARISON: None available. TECHNIQUE: 1 view. FINDINGS: Medical Devices: None. Lung Volumes: Adequate inspiration. No significant atelectasis. Lungs: Clear lungs. Pleura and Pleural spaces: No significant pleural effusion. No pneumothorax. Mediastinum: Normal cardiomediastinal silhouette. Bony Thorax and Soft Tissues: No significant incidental findings. IMPRESSION: No acute findings. Dictated by Terry Hurst MD @ 11/05/2024 5:32:[address] Chest/Ab/Pelvis: Attestation: I have reviewed the pertinent imaging results. Radiologist's impression: Patient: David Reyna MR#: [id number] : 1950 Acct:[id number] Loc: ED Service Date: 11/05/[address]: Ordering Physician: Puja Lozano M.D. Date of Service: 11/05/24 Procedure(s): CT chest abdomen pelv w con Accession Number(s): [id number] cc: Puja Lozano M.D.; Jason Hamm M.D.~ For Patients: As a result of the Cures Act, medical imaging exams and procedure reports are released immediately into your electronic medical record. You may view this report before your referring provider. If you have questions, please contact your health care provider. INDICATION: FALL TRAUMA LOC. (Sic) COMPARISON: Chest CT dated 12/26/2022. TECHNIQUE: CT of the chest, abdomen and pelvis with 91 cc of Isovue 370 intravenous contrast. Please note that all CT scans at this facility use dose modulation, iterative reconstruction, and/or weight-based dosing when appropriate to reduce radiation dose to as low as reasonably achievable. FINDINGS: THORAX Visualized Lower Neck: No lower cervical adenopathy. Lungs: No significant pulmonary findings. Bilateral lower lobe dependent hypoventilatory changes. Pleura: No pleural effusion. No pneumothorax. Mediastinum: Thoracic aorta and pulmonary trunk are normal in caliber. Are Nelson Adderall caliber of the mid ascending thoracic aorta at the level of the main pulmonary artery is 3.9 cm (series 4; image 42). Severe multivessel atherosclerotic coronary artery calcifications. Trachea and esophagus are normal in appearance. No mediastinal lymphadenopathy. ABDOMEN Liver: Normal contour and attenuation. No significant focal lesion. No intrahepatic biliary ductal dilatation. Patent portal veins. Patent hepatic veins. Gallbladder: Normal size. No pericholecystic inflammatory changes. Normal common duct caliber. Pancreas: Normal contour and attenuation. No peripancreatic inflammatory changes. No significant focal lesion. Normal main duct caliber. Spleen: Not enlarged. No significant focal lesion. Accessory splenule. Adrenal Glands: 2.5 cm right adrenal adenoma as on the prior noncontrast CT of 12/26/2022. unremarkable left adrenal gland. Kidneys: Normal bilateral renal attenuation. No significant focal lesion. Benign 1.6 cm exophytic right upper pole renal cortical cyst. No nephrolith. No dilatation of the intrarenal collecting systems. No ureteral stone. Nondilated ureters. Patent renal arteries and veins. Gastrointestinal tract: Normal caliber, attenuation and wall thickness of the gastrointestinal tract. Sigmoid diverticulosis without associated inflammatory changes. Normal small bowel mesentery. Normal appendix. Vascular: Chronic aortoiliac atherosclerotic mural calcification. Abdominal aorta and its major proximal branches including the celiac, superior mesenteric, inferior mesenteric, renal, and bilateral common iliac arteries are patent. Patent superior mesenteric vein. Peritoneal Cavity/Retroperitoneum: No ascites. No adenopathy. PELVIS Streak artifact associated with bilateral hip arthroplasties limits interpretation. No bladder lesion is identified. No significant incidental findings related to the prostate or seminal vesicles. No ascites. No adenopathy. 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 Bilateral hip arthroplasties. Left inguinal canal lipoma/extrusion of extraperitoneal fat. Anterior midline infraumbilical abdominal wall laparotomy scar. IMPRESSION: No acute traumatic injuries identified. Incidental findings as above. Please note that all CT scans at this facility use dose modulation, iterative reconstruction, and/or weight-based dosing when appropriate to reduce radiation dose to as low as reasonably achievable. Dictated by Terry Hurst MD @ 11/05/2024 5:47:51 PM Discharge Plan Discharge Clinical Impression: Laceration of scalp, Fall from ladder, Concussion with loss of consciousness Patient Disposition: Home w/ Parent or Adult Condition: Improved Instructions: Laceration (ED), Concussion (ED) Additional Instructions: All of your imaging today is reassuring. Nonetheless, if you develop new symptoms, particularly if you have severe headache, vomiting, worsening confusion, return to the ER for re-evaluation. Otherwise, staple removal at your clinic in about 10 days. Return for any signs of infection. Okay to take Tylenol or Miloxicam if needed. Prescriptions: No Action atorvastatin 20 mg tablet 20 mg PO QPM Qty: 90 3RF lisinopril 20 mg tablet 20 mg PO QDAY Qty: 90 3RF aspirin 81 mg tablet,delayed release (DR/EC) 81 mg PO QDAY acetaminophen [Tylenol] 325 mg tablet 650 mg PO Q4H PRN Follow Up/Referrals: Jason Hamm MD [Primary Care Provider] - Stand Alone Forms: [facility] Info Instructions
== END 2024-11-05 19:08 | disposition home or self-care (01) ==
PROVIDERS: Emergency Provider Emergency Medicine; PCP Family Medicine
DX: S01.01XA Laceration without foreign body of scalp, initial encounter (principal); W11.XXXA Fall on and from ladder, initial encounter; Z01.89 Encounter for other specified special examinations
CPT/HCPCS: 12002; 36415; 70450; 71045; 71260; 72125; 74177; 76604; 76705; 80048; 80076; 81001; 85025; 85610; 85730; 93308; 99284; 99291; G0390; Q9967

== ENCOUNTER 2024-11-17 13:45 | Outpatient (RCR) | payer MEDICARE, OTHER, SELFPAY ==
--- NOTE | 2024-09-26 11:20 | PT.OPEX ---
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 There is high-grade partial-thickness tearing of the insertion of the supraspinatus. The biceps is normal, the glenohumeral joint is normal. Referring MD Troy Driver MD Subjective Preferred Name ADAM Subjective Patient was seen several months ago for R shoulder pain in physical therapy referred by Dr. Mckee. It worsened so they did an MRI and referred him to Dr. Driver. He has a known partial tear of R supraspinatus and AC arthralgia. He reports he is going to do PT now but may require surgery at some point. Pain Comments 0-5/10 Pain is throbby, burning achy pain. Pain is constant, intensity changes based on activity. 7am-8am is the worst pain at 6-7/10 (and also in bed sleeping on L side) so he sleeps with a pillow under his right arm. He gets tingling in his R hand when he is sleeping on his left side (he has been avoiding sleeping on his right side). Better with ice, propping with pillows, Extra strength Tylenol every 6 hours and Aleve every 6 hours ( alternating) Date of Last Physician Visit 08/27/24 Current Work Status Retired Occupation Lives in [place] in a [employer] [facility] with full basement with his [place]. Precautions Treatment Precautions/Contraindications Difficulty lifting with the R arm (unless he leaves his R elbow straight), driving, sleeping on either side. Therapy Limitations/Systems Review Not Limited Objective Other/Pertinent Objective HAND DOM: RIGHT ROM: RIGHT shoulder 160, asymmetrical with pain; LEFT shoulder 170 without pain. STRENGTH: RIGHT shoulder 3+/5 with pain; LEFT shoulder 4/5 without pain. POSTURE: FHON, forward rounded shoulders, abducted scapula. PALPATION: Tenderness to palpation at R supraspinatus insertion on humerus, R supraspinatus, R AC joint, R subscap EDEMA: No edema present. SPECIAL TESTS: + Drop Arm R, + Empty Can R FLEXIBILITY: Hypoflexibility noted at pectoralis minor, upper trapezius/levator scapulae. Assessment Assessment/Impression Adam is a 73-year-old male who presents for skilled PT evaluation presenting with right shoulder pain and difficulty moving shoulder which is consistent with R partial thickness supraspinatus tear and AC joint arthrosis in the setting of forward rounded posture with weak thoracic extensors and R scapular dyskinesia. Patient is an appropriate candidate for skilled physical therapy to target deficits described above. Skilled PT intervention is necessary to achieve goals as stated. D/C plan and criteria is for patient to achieve the goals as outlined or until max rehab potential is met. Patient was agreeable with plan of care and goals established. Primary Functional Limitations Difficulty reaching for objects on high shelf, difficulty sleeping on either side, difficulty reaching into back pocket. Plan of Care Rehabilitation Potential Good Rehabilitation Potential Comments Patient is otherwise healthy and motivated to improve in order to return to prior level of function. Physical Therapy Goals 1. Patient will be independent with home exercise program as instructed, modified and progressed by physical therapist in order to be independently and actively participating in their rehabilitation and return to prior level of function. Goal to be achieved by 12/22/2024. 2. Patient will lift 8 # weight through at least 150 degrees of active shoulder flexion and abduction above head height safely and independently without compensation or significant increase in pain over 2/10 allowing for reaching and grasping objects from elevated surfaces to safely and independently allow functional activities such as lifting/ reaching to garden and decorate the home. Goal to be achieved by 12/23/23. Coordination/Communication With Referral Source Treatment Plan/Direct Interventions Dry Needling,Manual Therapy, Neuromuscular Re-ed,Self-Care/ Home Management,Therapeutic Activities,Therapeutic Exercises Frequency/Duration 1X/week for 6-8 weeks Patient Will Be Discharged From Therapy Completion of LTG(s),Skills Plateau,Independent w/HEP, Independently Progressing Discharge Plan Comments HEP Evaluation Billing Untimed Code Treatment Minutes 20 PT Eval No Charge No Complexity Low Certification Information Initial Certification Date 09/26/24 Ending Certification Date 12/25/24 Provider Signature Required Yes Provider Signature Shows Agreement With POC & Medical Necessity Physician NPI Number Write NPI# Here Physician Comment/Change : Physician Signature & Date Requested Please Sign/Date Here
== END 2025-03-17 23:59 | disposition home or self-care (01) ==
PROVIDERS: PCP Family Medicine; Visit Provider Orthopaedic Surgery
DX: M75.111 Incomplete rotator cuff tear or rupture of right shoulder, not specified as traumatic (principal); M19.011 Primary osteoarthritis, right shoulder; Z51.89 Encounter for other specified aftercare
CPT/HCPCS: 97110; 97112; 97161